=== PATIENT | female | born 1965 | race Hispanic/Latino ===

== ENCOUNTER 2023-02-22 00:02 | Emergency (ER) | payer BC ==
[~2023-02-22] VITALS: Ht 167.6 cm; Wt 65.3 kg
[2023-02-22] MEDS ORDERED: MUPI15C TP (02:07)
[2023-02-22] MEDS ORDERED: IBUP-1493 PO (02:07)
[2023-02-22 03:33] VITALS: BP 140/73; PULSE 65; RESP 16; O2SAT 99
== END 2023-02-22 03:36 | disposition home or self-care (01) ==
LOC: EDH 00:02
DX: S61.011A Laceration without foreign body of right thumb without damage to nail, initial encounter (principal); F32.A Depression, unspecified; F41.9 Anxiety disorder, unspecified; E03.9 Hypothyroidism, unspecified; E78.00 Pure hypercholesterolemia, unspecified; K21.9 Gastro-esophageal reflux disease without esophagitis; M79.7 Fibromyalgia; Z79.1 Long term (current) use of non-steroidal anti-inflammatories (NSAID); W18.39XA Other fall on same level, initial encounter; Y93.89 Activity, other specified; Y92.89 Other specified places as the place of occurrence of the external cause; Y99.8 Other external cause status
CPT/HCPCS: 72040